=== PATIENT | female | born 1985 | race Caucasian/White ===

== ENCOUNTER 2016-12-26 06:47 | Inpatient (IN) | payer BC ==
[~2016-12-26] VITALS: Ht 162.7 cm; Wt 85.5 kg
[~2016-12-26 06:47] MED LIST: ADDERALL20 MG PO; BCP TD; FOLIC ACID1 MG PO; LORTAB 5/500 501 TAB PO; PRENATAL1 TA1 PO; VALIUM 5MG T5 MG/TAB PO; ZANTAC 150MG T150 MG PO
[2017-01-28] VITALS (19 sets, daily range): BP systolic 117–142; BP diastolic 51–95; PULSE 87–112; TEMP 97.6–98.6
[2017-01-28 09:55] LABS: BASO % 0.2 % (0.0-2.0); EOS # 0.1 (0.0-0.7); EOS % 0.6 % (0-4.0); GRAN # 6.7 (1.4-6.5); GRAN % 75.3 % (42.2-75.2); HEMOGLOBIN 12.6 g/dl (12.5-16.0); LYMPH # 1.1 (1.2-3.4); LYMPH % 12.5 % (20.0-51.0); MEAN CELL VOLUME 91 fl (80.0-100.0); MEAN CORPUSCULAR HEMOGLOBIN 31 pg (27.0-31.0); MEAN CORPUSCULAR HGB CONC 34 g/dl (33.0-37.0); MEAN PLATELET VOLUME 11.5 fl (7.4-10.4); MONO # 0.9 (0.1-0.6); MONO % 10.2 % (1.7-9.3); PLATELET COUNT 226 K/mm3 (130-400); RED BLOOD COUNT 4.08 M/mm3 (4.10-5.30); REDCELL DISTRIBUTION WIDTH-CV 13.8 % (11.5-14.5)
[2017-01-29 07:41] LABS: HEMATOCRIT 33.6 % (37.0-47.0); HEMOGLOBIN 11.2 g/dl (12.5-16.0)
[2017-01-29 07:50] VITALS: BP 126/77; PULSE 94; TEMP 98.2
[2017-01-29 16:00] VITALS: BP 123/73; PULSE 85; TEMP 98.2
[2017-01-29 21:00] VITALS: BP 123/63; PULSE 84; TEMP 98
[2017-01-30 07:14] VITALS: BP 121/73; PULSE 98; TEMP 98.4
[2017-01-30] MEDS ORDERED: IBU600 MG PO (08:30)
[2017-01-30] MEDS ORDERED: NORCO 325 MG-51 TAB PO (08:31)
[2017-01-30 16:26] VITALS: BP 133/68; PULSE 88; TEMP 98.1
[2017-01-30 21:05] VITALS: BP 127/65; PULSE 93; TEMP 98.2
[2017-01-31 08:00] VITALS: BP 124/79; PULSE 91; TEMP 98.5
== END 2017-01-31 10:20 | disposition home or self-care (01) | DRG 766 ==
LOC: EDSTATUS 06:47 → LDRO 11:15 → OB 01-28 07:01
PROVIDERS: Obstetrics & Gynecology
PROC: 10D00Z1 Extraction of Products of Conception, Low, Open Approach (ICD-10-PCS; principal; 2017-01-28)
DX: O34.211 Maternal care for low transverse scar from previous cesarean delivery (principal); N85.8 Other specified noninflammatory disorders of uterus; Z3A.39 39 weeks gestation of pregnancy; Z37.0 Single live birth
CPT/HCPCS: J0690; J1885; J2210; J2270; J2370; J2405; J2590; J7120

== ENCOUNTER → 2018-08-19 | Outpatient (CLI) | payer BC ==
[~2018-08-19] MED LIST changes: +IBU600 MG PO; +NORCO 325 MG-51 TAB PO
== END ==
LOC: OLC 09:52
DX: Z39.1 Encounter for care and examination of lactating mother (principal); Z71.89 Other specified counseling

== ENCOUNTER → 2018-08-26 | Outpatient (CLI) | payer BC | LOC: LAC 12:14 | DX: Z39.1 Encounter for care and examination of lactating mother (principal); Z71.89 Other specified counseling ==

== ENCOUNTER 2019-01-14 10:26 | Emergency (ER) | payer OTHER ==
[~2019-01-14] VITALS: Ht 162.6 cm; Wt 72.7 kg
[2019-01-14 10:29] VITALS: TEMP 98.5
[2019-01-14 10:58] LABS: HEMATOCRIT 39.9 % (37.0-47.0); HEMOGLOBIN 13.7 g/dl (12.5-16.0); MEAN CELL VOLUME 93 fl (80.0-100.0); MEAN CORPUSCULAR HEMOGLOBIN 32 pg (27.0-31.0); MEAN CORPUSCULAR HGB CONC 34 g/dl (33.0-37.0); MEAN PLATELET VOLUME 8.8 fl (7.4-10.4); PLATELET COUNT 308 K/mm3 (130-400); RED BLOOD COUNT 4.31 M/mm3 (4.10-5.30); REDCELL DISTRIBUTION WIDTH-CV 12.4 % (11.5-14.5)
[2019-01-14 11:03] LABS: INR 0.9 (0.8-3.0); PROTHROMBIN TIME 10.7 SECONDS (9.7-12.8)
[2019-01-14 11:13] LABS: ALBUMIN 3.9 gm/dL (3.5-5.0); BILIRUBIN,TOTAL 0.4 mg/dL (0.0-1.0); CALCIUM 8.4 mg/dL (8.4-10.2); CREATININE, serum 0.63 mg/dL (0.52-1.25); POTASSIUM 3.8 mmol/L (3.4-5.0); TOTAL PROTEIN 6.8 gm/dL (6.4-8.2)
[2019-01-14 11:14] LABS: BAND 6 % (0-10); EOSINOPHIL 3 % (0-4); LYMPHOCYTE 29 % (20.0-51.0); NEUTROPHILS 53 % (42.0-75.2); PLATELET ESTIMATE NORMAL (NORMAL)
[2019-01-14 15:00] VITALS: BP 129/78; PULSE 95
== END 2019-01-14 15:00 | disposition short-term general hospital (02) ==
LOC: COL.ER 10:26
PROVIDERS: Physician Assistant
DX: I65.09 Occlusion and stenosis of unspecified vertebral artery (principal); R29.818 Other symptoms and signs involving the nervous system; F17.210 Nicotine dependence, cigarettes, uncomplicated; Z98.51 Tubal ligation status
CPT/HCPCS: J1200; J2405; J2550; J7030; Q9967

== ENCOUNTER 2019-01-17 11:06 | Emergency (ER) | payer OTHER ==
[~2019-01-17] VITALS: Ht 162.6 cm; Wt 73.1 kg
[2019-01-17 11:10] VITALS: BP 139/61; TEMP 99
[2019-01-17] MEDS ORDERED: ASPIRIN 81M81 MG/TA2 PO (11:21)
[2019-01-17] MEDS ORDERED: ZOFRAN ODT4 MG PO (12:35)
[2019-01-17 12:55] VITALS: PULSE 109
== END 2019-01-17 12:56 | disposition home or self-care (01) ==
LOC: COL.ER 11:06
DX: I71.00 Dissection of unspecified site of aorta (principal); Z79.82 Long term (current) use of aspirin
CPT/HCPCS: J2405; J7030; Q9967

== ENCOUNTER → 2019-07-19 | Outpatient (CLI) | payer SELFPAY ==
[~2019-07-19] MED LIST changes: +ASPIRIN 81M81 MG/TA2 PO; +ZOFRAN ODT4 MG PO
== END ==
LOC: COL.RAD 12:30
DX: I77.74 Dissection of vertebral artery (principal); Z86.73 Personal history of transient ischemic attack (TIA), and cerebral infarction without residual deficits
CPT/HCPCS: A9585